=== PATIENT | male | born 1965 | race Caucasian/White ===

== ENCOUNTER 2018-06-01 09:26 | Emergency (ER) | payer SELFPAY ==
[~2018-06-01] VITALS: Ht 162.6 cm; Wt 65.0 kg
[2018-06-01] MEDS ORDERED: DIPHTH/TET/ACEL PERTUSS (ADULT) 0.5 ML VIAL IM* ONE (09:30)
[2018-06-01 09:32] VITALS: Ht 162.6 cm; Wt 65.0 kg
[2018-06-01] MEDS ORDERED: SOD CHLORIDE 0.9% 1,000 ML IV STA (10:10)
--- NOTE | 2018-06-01 12:26 | ERD ---
ER Documentation Chief Complaint Chief Complaint alcohol intoxicated trip and fall hematoma on the back of head HPI This is a 52-year-old male with a history of alcohol abuse who presented to the emergency department acutely intoxicated found by EMS after he stated he had a trip and fall and landed on the posterior aspect of his head. He hit his head on cement. He stated he cannot remember if he lost consciousness. This occurr ed just prior to arrival. He is complaining of a headache. He denies any changes in vision. He denies any nausea. He has had no fevers no shaking or chills. He denies any hemoptysis hematemesis or melanotic stools. ROS All systems reviewed and are negative except as per history of present illness. Medications Home Meds Unable to Obtain Active Prescriptions or Reported Meds Allergies Allergies: Coded Allergies: Unknown: Unable to obtain (Unverified , 08/17/15) PMhx/Soc Medical and Surgical Hx: pt denies Surgical Hx Hx Miscellaneous Medical Probl: Yes (ETOH ABUSE) Hx Alcohol Use: Yes (daily, unable to states) Hx Substance Use: No Hx Tobacco Use: No Smoking Status: Current some day smoker Physical Exam Vitals Vital Signs Date Temp Pulse Resp B/P (MAP) Pulse Ox O2 O2 Flow FiO2 Time Delivery Rate 06/01/18 98.1 100 18 164/89 100 09:32 (114) Physical Exam Constitutional:Well-developed. Disheveled. HEENT:Normocephalic. Posterior scalp hematoma with a 3 cm laceration no exposure of the calvarium..Pupils were equal round reactive to light. Moist mucous membranes.No tonsillar exudates. Neck: No nuchal rigidity. No lymphadenopathy. No posterior cervical spine tenderness or step-offs. Respiratory: Not using accessory muscles of respiration.Lungs were clear to auscultation bilaterally. No rhonchi. No rales. No wheezing. Cardiovascular: Regular rate regular rhythm.No murmurs. No rubs were appreciated.S1, S2 normal. Distal pulses are palpable 2+ bilaterally. GI: Abdomen was soft. Nontender. Non Distended. No pulsatile abdominal masses or bruits. No rebound. No guarding. Bowel sounds were present and normal. Muscle skeletal: Full range of motion of both the upper and lower extremities bilaterally.Normal muscle tone.No assymetrical calf tenderness or swelling. Skin: No petechia, no purpura. No lesions on the palms or the soles of the feet. No maculopapular rash. NEURO: Patient was alert, awake, orientated x3.No facial droop. Gait observed and normal with no ataxia.Speech was slurred and patient smells of alcohol. No focal neurological deficits. Result Diagram: 06/01/1848 06/01/1848 Results 24 hrs Laboratory Tests Test 06/01/18 09:48 White Blood Count 3.5 10^3/ul Red Blood Count 3.97 10^6/ul Hemoglobin 10.6 g/dl Hematocrit 33.2 % Mean Corpuscular Volume 83.6 fl Mean Corpuscular Hemoglobin 26.7 pg Mean Corpuscular Hemoglobin Concent 31.9 g/dl Red Cell Distribution Width 17.4 % Platelet Count 146 10^3/UL Mean Platelet Volume 10.7 fl Immature Granulocytes % 0.300 % Neutrophils % 67.9 % Lymphocytes % 17.8 % Monocytes % 11.5 % Eosinophils % 1.4 % Basophils % 1.1 % Nucleated Red Blood Cells % 0.0 /100WBC Immature Granulocytes # 0.010 10^3/ul Neutrophils # 2.4 10^3/ul Lymphocytes # 0.6 10^3/ul Monocytes # 0.4 10^3/ul Eosinophils # 0.1 10^3/ul Basophils # 0.0 10^3/ul Nucleated Red Blood Cells # 0.0 10^3/ul Sodium Level 140 mmol/L Potassium Level 3.6 mmol/L Chloride Level 101 mmol/L Carbon Dioxide Level 25 mmol/L Anion Gap 14 Blood Urea Nitrogen 12 mg/dl Creatinine 0.59 mg/dl Est Glomerular Filtrat Rate mL/min > 60 mL/min Glucose Level 115 mg/dl Calcium Level 9.4 mg/dl Total Bilirubin 0.8 mg/dl Direct Bilirubin 0.00 mg/dl Indirect Bilirubin 0.8 mg/dl Aspartate Amino Transf (AST/SGOT) 49 IU/L Alanine Aminotransferase (ALT/SGPT) 19 IU/L Alkaline Phosphatase 92 IU/L Total Protein 8.6 g/dl Albumin 4.5 g/dl Globulin 4.10 g/dl Albumin/Globulin Ratio 1.09 Salicylates Level < 1.0 mg/dl Acetaminophen Level < 10.0 ug/ml Ethyl Alcohol Level 135.0 mg/dl Current Medications Medications Dose Sig/Krysta Start Time Status Last (Trade) Ordered Route PRN Stop Time Admin Dose Reason Admin Diphtheria/ 0.5 ml ONCE ONCE 06/01/18 DC 06/01/18 Tetanus/Acell IM* 09:30 09:55 Pertussis 06/01/18 09:35 (Adacel) Sodium 1,000 ml @ Q1H STAT 06/01/18 DC 06/01/18 Chloride 1,000 mls/hr IV 10:10 10:23 06/01/18 11:09 Procedures/MDM This is a 52-year-old male presented to the emergency department after blunt head trauma with clinically intoxicated. Due to the high risk of subdural hematoma the patient underwent a CT scan of his head this was reviewed by the radiologist myself and indicated a followin. Midline posterior scalp swelling. No underlying fracture. 2. No additional acute findings. Negative for hemorrhage. 3. Generalized cerebral and cerebellar volume loss, advanced for age. The patient serum ethanol was elevated 135. There is no severe electrolyte abnormalities. The patient remained in the emergency department until clinical sobriety tree. Procedure Note: The patient's posterior scalp hematoma was irrigated using high- pressure normal saline. The wound was visualized under direct light by myself. There is no evidence of foreign body. Hemostasis was controlled. Patient was refusing topical lidocaine. 3 jorge were placed to oppose the wound. The patient tolerated the procedure well. He was given a tetanus toxoid update. Topical antimicrobial gel was applied to the wound. Observation Note: Time: 4 hours Family Hx: No Hypertension Evaluation: Multiple exams showed improving symptoms and no evidence of impending delirium tremors Departure Diagnosis: Primary Impression: Scalp hematoma Encounter type: initial encounter Qualified Codes: S00.03XA - Contusion of scalp, initial encounter Additional Impressions: Alcohol intoxication Complication of substance-induced condition: uncomplicated Qualified Codes: F10.920 - Alcohol use, unspecified with intoxication, uncomplicated Laceration of occipital scalp Encounter type: initial encounter Qualified Codes: S01.01XA - Laceration without foreign body of scalp, initial encounter Condition: LORNA Doss MD Jun 01, 2018 12:26
[2018-06-01 13:33] VITALS: BP 142/84; PULSE 84; RESP 16
== END 2018-06-01 13:40 | disposition home or self-care (01) ==
LOC: E/R 09:26
DX: S01.01XA Laceration without foreign body of scalp, initial encounter (principal); F10.920 Alcohol use, unspecified with intoxication, uncomplicated; F17.210 Nicotine dependence, cigarettes, uncomplicated; W01.198A Fall on same level from slipping, tripping and stumbling with subsequent striking against other object, initial encounter; Y92.9 Unspecified place or not applicable; Z23 Encounter for immunization
CPT/HCPCS: 70450; 80053; 80307; 85025; 90471; 90715; 99285; J7030

== ENCOUNTER 2018-06-14 13:42 | Emergency (ER) | payer MEDICAID ==
[~2018-06-14] VITALS: Ht 165.1 cm; Wt 70.0 kg
[2018-06-14 14:13] VITALS: Ht 165.1 cm; Wt 70.0 kg
[2018-06-14] MEDS ORDERED: MAGNESIUM SULFATE 2 GM, MULTIVITAMINS 10 ML, THIAMINE 100 MG, FOLIC ACID 1 MG in SOD CH... IV STA (14:13)
[2018-06-14] MEDS ORDERED: DIPHTH/TET/ACEL PERTUSS (ADULT) 0.5 ML VIAL IM* ONE (14:30)
--- NOTE | 2018-06-14 17:32 | ERD ---
ER Documentation Chief Complaint Chief Complaint LACERATION TO NOSE/LIPS S/P FALL WHILE DRINKING ETOH HPI This is a 52-year-old male with a history of alcoholism. The patient indicates he has been drinking alcohol street for the past 14 days. The patient stated he had a fall just prior to arrival. He tripped and fell forward and landed on the front of his head and nose. He is complaining of a mild headache. He stated he did not lose consciousness. He denies any hemoptysis hematemesis or melanotic stools. He denies any history of alcohol withdrawal seizures. He does not feel anxious or confused. He has no shortness of breath. He denies any chest pain or pressure ROS All systems reviewed and are negative except as per history of present illness. Medications Home Meds No Active Prescriptions or Reported Meds Allergies Allergies: Coded Allergies: No Known Allergy (Unverified , 06/14/18) PMhx/Soc Medical and Surgical Hx: pt denies Medical Hx, pt denies Surgical Hx Hx Miscellaneous Medical Probl: Yes (ETOH ABUSE) Hx Alcohol Use: Yes (NONSTOP DRINKING FOR 15-DAYS) Hx Substance Use: No Hx Tobacco Use: No Smoking Status: Never smoker Physical Exam Vitals Vital Signs Date Temp Pulse Resp B/P (MAP) Pulse Ox O2 O2 Flow FiO2 Time Delivery Rate 06/14/18 98.4 98 16 133/78 96 14:13 (96) Physical Exam Constitutional:Well-developed. Disheveled. Patient smelled of alcohol. HEENT:Normocephalic. Ecchymosis over the frontal mid forehead. 2 cm laceration over the nasal bridge with tenderness. No nasal septal hematoma. No hemotympanum..Pupils were equal round reactive to light. Moist mucous membranes.No tonsillar exudates. Neck: No nuchal rigidity. No lymphadenopathy. No posterior cervical spine tenderness or step-offs. Respiratory: Not using accessory muscles of respiration.Lungs were clear to auscultation bilaterally. No rhonchi. No rales. No wheezing. Cardiovascular: Regular rate regular rhythm.No murmurs. No rubs were appreciated.S1, S2 normal. Distal pulses are palpable 2+ bilaterally. GI: Abdomen was soft. Nontender. Non Distended. No pulsatile abdominal masses or bruits. No rebound. No guarding. Bowel sounds were present and normal. Muscle skeletal: Full range of motion of both the upper and lower extremities bilaterally.Normal muscle tone.No assymetrical calf tenderness or swelling. Skin: No petechia, no purpura. No lesions on the palms or the soles of the feet. No maculopapular rash. NEURO: Patient was alert, awake, orientated x3.No facial droop. Gait observed and ataxia. Slurred speech.. No focal neurological deficits. Result Diagram: 06/14/18 1420 06/14/18 1420 Results 24 hrs Laboratory Tests Test 06/14/18 14:20 White Blood Count 4.3 10^3/ul Red Blood Count 4.16 10^6/ul Hemoglobin 11.3 g/dl Hematocrit 35.2 % Mean Corpuscular Volume 84.6 fl Mean Corpuscular Hemoglobin 27.2 pg Mean Corpuscular Hemoglobin Concent 32.1 g/dl Red Cell Distribution Width 17.9 % Platelet Count 145 10^3/UL Mean Platelet Volume 11.1 fl Immature Granulocytes % 0.200 % Neutrophils % 61.0 % Lymphocytes % 26.9 % Monocytes % 8.6 % Eosinophils % 1.9 % Basophils % 1.4 % Nucleated Red Blood Cells % 0.0 /100WBC Immature Granulocytes # 0.010 10^3/ul Neutrophils # 2.6 10^3/ul Lymphocytes # 1.2 10^3/ul Monocytes # 0.4 10^3/ul Eosinophils # 0.1 10^3/ul Basophils # 0.1 10^3/ul Nucleated Red Blood Cells # 0.0 10^3/ul Prothrombin Time 12.3 Sec Prothrombin Time Ratio 1.0 INR International Normalized Ratio 0.90 Activated Partial Thromboplast Time 29.3 Sec Sodium Level 142 mmol/L Potassium Level 4.1 mmol/L Chloride Level 102 mmol/L Carbon Dioxide Level 25 mmol/L Anion Gap 15 Blood Urea Nitrogen 16 mg/dl Creatinine 0.67 mg/dl Est Glomerular Filtrat Rate mL/min > 60 mL/min Glucose Level 146 mg/dl Calcium Level 9.6 mg/dl Total Bilirubin 0.6 mg/dl Direct Bilirubin 0.00 mg/dl Indirect Bilirubin 0.6 mg/dl Aspartate Amino Transf (AST/SGOT) 99 IU/L Alanine Aminotransferase (ALT/SGPT) 32 IU/L Alkaline Phosphatase 108 IU/L Total Protein 8.8 g/dl Albumin 4.8 g/dl Globulin 4.00 g/dl Albumin/Globulin Ratio 1.20 Salicylates Level < 1.0 mg/dl Acetaminophen Level < 10.0 ug/ml Ethyl Alcohol Level 268.0 mg/dl Current Medications Medications Dose Sig/Krysta Start Time Status Last (Trade) Ordered Route PRN Stop Time Admin Dose Reason Admin Magnesium 1,015.2 ml Q2H2M STAT 06/14/18 DC 06/14/18 Sulfate 2 @ 500 mls/ IV 14:13 06/14/18 17:32 gm/ hr 16:14 Multivitamins 10 ml/Thiamine HCl 100 mg/Folic Acid 1 mg/Sodium Chloride Diphtheria/ 0.5 ml ONCE ONCE 06/14/18 DC 06/14/18 Tetanus/Acell IM* 14:30 06/14/18 17:33 Pertussis 14:31 (Adacel) Procedures/MDM This is a 52-year-old male that presented to the emergency department with acute alcohol intoxication and closed head injury. CT scan of the patient's head was ordered reviewed by myself the radiologist and indicated a followin. No CT evidence of acute intracranial changes including hemorrhage, mass effect, midline shift or herniation. 2. Diffuse central and cortical volume loss, greater than expected for age with symmetric prominence of the ventricles, cisterns and sulci. 3. Subtle low attenuation in the subcortical and periventricular white matter, likely attributable to chronic microangiopathic changes. Preservation of the gutierrez-white matter distinction as assessed by CT. In the proper clinical setting, further brain MR imaging can be performed to enhance detection of entities such as diffuse axonal injury, acute early ischemia, and vasogenic edema. 4. Intact appearance of the bony calvarium. No overlying focal scalp or soft tissue abnormality identified. I did a 12-lead EKG tracing to rule out for atypical myocardial infarction. 12 Lead EKG tracing ordered and reviewed by myself showed: Normal sinus rhythm of 100 bpm and no arrhythmia. OH interval normal. QRS duration normal. No ST segment elevation No ST segment depression. No changes consistent with acute ischemia. The patient also had a CT max the patient that indicated a nasal bone fracture. The patient's wound was irrigated using high-pressure normal saline. It was visualized under direct light. There is no evidence of foreign body. The wound was easily opposed with Steri-Strips. No suture repair was required. The patient serum ethanol was elevated. He remained in the emergency department until clinical sobriety tree. Observation Note: Time: 4 hours Family Hx: No Hypertension Evaluation: Multiple exams showed improving symptoms and no evidence of impe nding delirium tremors. The patient was given a banana bag while in the emergency department Departure Diagnosis: Primary Impression: Alcoholic intoxication Complication of substance-induced condition: uncomplicated Qualified Codes: F10.920 - Alcohol use, unspecified with intoxication, uncomplicated Additional Impressions: Nasal bone fracture Encounter type: initial encounter Fracture type: closed Qualified Codes: S02.2XXA - Fracture of nasal bones, initial encounter for closed fracture Closed head injury Encounter type: initial encounter Qualified Codes: S09.90XA - Unspecified injury of head, initial encounter Nasal laceration Encounter type: initial encounter Qualified Codes: S01.21XA - Laceration without foreign body of nose, initial encounter Condition: LORNA Doss MD June 14, 2018 17:32
[2018-06-14 19:23] VITALS: BP 122/68; PULSE 100; RESP 16
== END 2018-06-14 18:23 | disposition home or self-care (01) ==
LOC: E/R 13:42
DX: F10.920 Alcohol use, unspecified with intoxication, uncomplicated (principal); S02.2XXA Fracture of nasal bones, initial encounter for closed fracture; S01.21XA Laceration without foreign body of nose, initial encounter; W01.0XXA Fall on same level from slipping, tripping and stumbling without subsequent striking against object, initial encounter; Y92.9 Unspecified place or not applicable
CPT/HCPCS: 70450; 70486; 80053; 80307; 85025; 85610; 85730; 90471; 90715; 93005; 96374; J3411; J3475; J7030; Z7502; Z7610